=== PATIENT | male | born 1975 | race Caucasian/White ===

== ENCOUNTER → 2022-01-08 | Outpatient (CLI) | payer BC | END | disposition home or self-care (01) | LOC: RADECHMAIN 11:52 | PROVIDERS: ATTEND Family Medicine | DX: Z53.9 Procedure and treatment not carried out, unspecified reason (principal) | CPT/HCPCS: 93225; 93226 ==

== ENCOUNTER → 2022-01-17 | Outpatient (CLI) | payer BC ==
--- NOTE | 2022-01-25 20:36 | CE ---
CARDIAC ELECTROPHYSIOLOGY REPORT STUDY PERFORMED: 48-hour monitor. FINDINGS: The patient was monitored for 24 hours. The baseline rhythm appeared to be sinus mechanism with a minimum heart rate of 146, maximum 160, and average of 83 beats per minute. The patient was monitored for 48 hours. The baseline rhythm appeared to be sinus mechanism as described above with maximum heart rate 146, minimum is 60, and average of 83 beats per minute. The patient did have multiple PVCs noted. He did have also ventricular couplets. He did have also multiple episodes of sinus tachycardia and 1 episode of SVT noted. CONCLUSION: 1. This is a 48-hour monitor. 2. The baseline rhythm appeared to be sinus mechanism. 3. The patient did have ventricular ectopy in the term of PVCs as well as couplets. 4. The patient did have 1 episode of SVT. MMLISA / TABITHAN: [id number] /
--- NOTE | 2022-01-29 09:10 | HM ---
STUDY PERFORMED: 48-hour monitor. FINDINGS: The patient was monitored for 24 hours. The baseline rhythm appeared to be sinus mechanism with a minimum heart rate of 146, maximum 160, and average of 83 beats per minute. The patient was monitored for 48 hours. The baseline rhythm appeared to be sinus mechanism as described above with maximum heart rate 146, minimum is 60, and average of 83 beats per minute. The patient did have multiple PVCs noted. He did have also ventricular couplets. He did have also multiple episodes of sinus tachycardia and 1 episode of SVT noted. CONCLUSION: 1. This is a 48-hour monitor. 2. The baseline rhythm appeared to be sinus mechanism. 3. The patient did have ventricular ectopy in the term of PVCs as well as couplets. 4. The patient did have 1 episode of SVT. JOSETTE / TABITHAN: [id number] / MTDD
== END | disposition home or self-care (01) ==
LOC: RADECHMAIN 10:49
PROVIDERS: ATTEND Family Medicine
DX: I49.3 Ventricular premature depolarization (principal); I47.1 Supraventricular tachycardia; R42 Dizziness and giddiness
CPT/HCPCS: 93225; 93226